=== PATIENT | male | born 1995 | race Caucasian/White ===

== ENCOUNTER 2018-04-22 17:07 | Emergency (ER) | payer OTHER ==
--- NOTE | 2018-04-22 17:32 | EDPHY ---
H & P Time Seen by Provider: 04/22/18 17:24 HPI/ROS: CHIEF COMPLAINT: Left chest wall pain HISTORY OF PRESENT ILLNESS: Patient is a 23-year-old male here with left chest wall pain for the last 10 days after wrestling with a friend. Pain started immediately after wrestling with a friend. Denies shortness of breath, hemoptysis, fever. He does have a prior history of 4 spontaneous pneumothoraces but approximately 3 years ago he completed pleurodesis and has not had a pneumothorax since. Denies any drug or alcohol use. Pain is worth his respiration. No history of pulmonary embolism. REVIEW OF SYSTEMS: Constitutional: No fever, no chills. Eyes: No discharge. ENT: No sore throat. Cardiovascular: No chest pain, no palpitations. Respiratory: No cough, no shortness of breath. Gastrointestinal: No abdominal pain, no vomiting. Genitourinary: No hematuria. Musculoskeletal: No back pain. Skin: No rashes. Neurological: No headache. Smoking Status: Never smoked Physical Exam: General Appearance: Alert and no distress. Eyes: Pupils equal and round no injection. Respiratory: Chest is nontender, lungs are clear to auscultation. Cardiac: regular rate and rhythm. Gastrointestinal: Abdomen is soft and nontender, no masses, bowel sounds normal. Musculoskeletal: Neck is supple and nontender. Extremities have full range of motion and are nontender. Skin: No rashes or lesions. Constitutional: Initial Vital Signs Temperature (C) 36.8 C 04/22/18 17:10 Heart Rate 80 04/22/18 17:10 Respiratory Rate 18 04/22/18 17:10 Blood Pressure 100/73 04/22/18 17:10 O2 Sat (%) 96 04/22/18 17:10 O2 Delivery Mode Room Air Allergies/Adverse Reactions: No Known Allergies Allergy (Unverified 04/22/18 17:10) Home Medications: Medication Instructions Recorded NK [No Known Home Meds] 04/22/18 Medical Decision Making - Diagnostics Imaging Results: Imaging Impressions Chest X-Ray 04/22/18 17:14 Impression: Negative for pneumothorax or other acute abnormality. Ribs w/Chest X-Ray 04/22/18 17:31 Impression: Negative for pneumothorax or displaced rib fracture ED Course/Re-evaluation: 23-year-old male here with left-sided chest wall pain. EKG is normal and chest x-ray and rib films reveal no acute fracture or pneumothorax. Is likely either a nondisplaced fracture or rib contusion or costochondritis. On the way will treat him with anti-inflammatories. We discussed indications for return to the ER. Differential Diagnosis: Pulmonary contusion, rib fracture, pulmonary embolism, cardiac arrhythmia, pneumothorax Departure - Departure Disposition: Home, Routine, Self-Care Clinical Impression: Chest wall pain Condition: Good Instructions: Thoracic Pain (ED) Additional Instructions: Return to the ER if he develops any worsening symptoms. The symptoms are not resolving please follow up with primary care physician in the next 5 7 days. Referrals: NONE *PRIMARY CARE P,. [Primary Care Provider] - As per Instructions [facility],. [Clinic] - As per Instructions
[2018-04-22 18:39] VITALS: BP 111/72
--- NOTE | 2018-04-22 20:52 | CPEKG ---
Test Reason : OPEN Blood Pressure : / mmHG Vent. Rate : 065 BPM Atrial Rate : 066 BPM P-R Int : 144 ms QRS Dur : 081 ms QT Int : 396 ms P-R-T Axes : 059 089 067 degrees QTc Int : 412 ms Sinus rhythm Confirmed by Gage Appiah ([id number]) on 04/22/2018 8:51:50 PM Referred By: Confirmed By:Gage Appiah
== END 2018-04-22 18:38 | disposition home or self-care (01) ==
DX: R07.89 Other chest pain (principal)